=== PATIENT | male | born 1990 ===

== ENCOUNTER 2017-11-02 13:41 | Emergency (ER) | payer OTHER ==
[2017-11-02 14:25] VITALS: BP 134/77
--- NOTE | 2017-11-02 14:34 | UC ---
Respiratory Complaint HPI - HPI Summary HPI Summary: 27 y/o male presents to the urgent care c/o Hoarseness and intermittent productive cough for the past 4 days. He started w/ sore throat today. He also has nasal congestion w/ clear nasal discharge. Pain w/ swallowing is mild 2/ 10. Pt reports his 6 months old son started w/ the cough. He has taken Robitussin PO to alleviate symptoms. Pt denies fever, SOB, HIGUERA, sinus pain, wheezing, chest pain, abdominal pain, N/V/D. - History of Current Complaint Chief Complaint: UCGeneralIllness Stated Complaint: COUGH,ST Time Seen by Provider: 11/02/17 14:33 Hx Obtained From: Patient Onset/Duration: Gradual Onset, Lasting Days - 2 days, Still Present, Worse Since - today Timing: Intermittent Episodes - cough Severity Initially: Mild Severity Currently: Moderate Pain Intensity: 2 Pain Scale Used: 0-10 Numeric Character: Cough: Productive - yellowish sputum at times Aggravating Factors: Recumbent Position Alleviating Factors: OTC Meds - Mucinex Associated Signs And Symptoms: Positive: Nasal Congestion. Negative: Dyspnea, Fever, Pleuritic Chest Pain, Hemoptysis - Risk Factors Pulmonary Embolism Risk Factors: Negative Cardiac Risk Factors: Negative Pseudomonas Risk Factors: Negative Tuberculosis Risk Factors: Negative - Allergies/Home Medications Allergies/Adverse Reactions: Allergies Allergy/AdvReac Type Severity Reaction Status Date / Time No Known Allergies Allergy Verified 11/02/17 14:20 Home Medications: Home Medications GuaiFENesin DM* [Robitussin DM*] 10 ml PO Q6H PRN 11/02/17 [History Confirmed ] PMH/Surg Hx/FS Hx/Imm Hx Previously Healthy: Yes - Pt denies PMHX - Surgical History Surgical History: None - Family History Known Family History: Positive: None - Pt denies PMHX - Social History Occupation: Employed Full-time Lives: With Family Alcohol Use: None Substance Use Type: None Smoking Status (MU): Never Smoked Tobacco Review of Systems Constitutional: Negative Skin: Negative Eyes: Negative ENT: Sore Throat, Nasal Discharge, Sinus Congestion, Other - horseness Respiratory: Cough - productive Cardiovascular: Negative Gastrointestinal: Negative Genitourinary: Negative Motor: Negative Neurovascular: Negative Musculoskeletal: Negative Neurological: Negative Psychological: Negative Is Patient Immunocompromised?: No All Other Systems Reviewed And Are Negative: Yes Physical Exam - Summary Physical Exam Summary: Vital Signs Reviewed: Yes General: well developed, well nourished male sitting in the examining table w/o any apparent distress Eyes: Positive: Conjunctiva Clear - PERRLA, EOMI, fundi grossly normal ENT: Positive: Normal ENT inspection, Hearing grossly normal, Pharynx mild erythema, no exudate, Nasal congestion - edematous and erythematous nasal mucosa , Nasal drainage - yellowish drainage, TMs normal. Negative: Tonsillar swelling , Tonsillar exudate Neck: Positive: Supple, Nontender, No Lymphadenopathy Respiratory: no orthopnea or dyspnea. Able to speak in full sentences, no retractions or accessory muscle use, no tripod position, stridor, or head bobbing. CTA bilaterally, no wheezing, no rhonchi, no rales, no crackles. Cardiovascular: Positive: RRR, No Murmur, Pulses Normal, Brisk Capillary Refill Abdomen Description: Positive: Nontender, No Organomegaly, Soft. Negative: CVA Tenderness (R), CVA Tenderness (L) Bowel Sounds: Positive: Present Musculoskeletal Exam: Normal Musculoskeletal: Positive: Strength Intact, ROM Intact, No Edema Neurological Exam: Normal Psychological Exam: Normal Skin Exam: Normal Triage Information Reviewed: Yes Vital Signs: Initial Vital Signs Temp 98.7 F 11/02/17 14:19 Pulse 100 11/02/17 14:19 Resp 16 11/02/17 14:19 BP 134/77 11/02/17 14:19 Pulse Ox 99 11/02/17 14:19 UC Diagnostic Evaluation - Laboratory O2 Sat by Pulse Oximetry: 99 Respiratory Course/Dx - Course Course Of Treatment: 27 y/o male presents to the urgent care c/o Hoarseness and intermittent productive cough for the past 4 days. He started w/ sore throat today. He also has nasal congestion w/ clear nasal discharge. Pain w/ swallowing is mild 2/10. Pt reports his 6 months old son started w/ the cough. He has taken Robitussin PO to alleviate symptoms. Pt denies fever, SOB, HIGUERA, sinus pain, wheezing, chest pain, abdominal pain, N/V/D.Hx obtained. Pt w/ an URI on examination. Pt Rx Tessalon tabs PO to alleviate cough and advised to take Tylenol or Ibuprofen PO for pain and swelling. Advised on hand washing to avoid spreading. Pt advised to rest, eat well and avoid strenuous exercise and rest his voice. If symptoms do not improve or worsen advised to return to the urgent care or f/u with her PCP for further evaluation and treatment. Pt understood and agreed. - Differential Dx/Diagnosis Differential Diagnosis/HQI/PQRI: Asthma, Bronchitis, Influenza, Laryngitis, Sinusitis, Other - URI, pharyngitis Provider Diagnoses: 1- Upper respiratory infection. 2- Laryngitis Discharge - Sign-Out/Discharge Documenting (check all that apply): Discharge/Admit/Transfer - discharge home - Discharge Plan Condition: Stable Disposition: HOME Prescriptions: Benzonatate CAP* [Tessalon 100 MG CAP*] 100 mg PO TID #21 cap Patient Education Materials: Upper Respiratory Infection (ED) Forms: *Work Release Referrals: Darell Bell DO [Primary Care Provider] - If Needed Additional Instructions: 1-Please take ibuprofen PO q6-8hrs prn as instructed after meals to alleviate pain and swelling. Increase fluid intake, eat well, rest and avoid strenuous exercise 2- Take Tessalon PO tabs as directed to alleviate cough. Use saline drops as directed to clear sinuses. 3-If symptoms do not improve or worsen please return to the urgent care or f/u with your PCP for further evaluation and treatment. - Billing Disposition and Condition Condition: STABLE Disposition: HOME
== END 2017-11-02 14:53 | disposition home or self-care (01) ==
LOC: UCCORT 13:41
DX: J06.9 Acute upper respiratory infection, unspecified (principal); J04.0 Acute laryngitis
CPT/HCPCS: 99202; G0463